=== PATIENT | female | born 1960 | race Caucasian/White ===

== ENCOUNTER 2021-09-26 17:52 | Emergency (ER) | payer OTHER ==
--- NOTE | 2021-09-26 18:52 | EDM.PDOC ---
ED HPI GENERAL MEDICAL PROBLEM - General Chief Complaint: General Stated Complaint: COVID SYMPTOMS Time Seen by Provider: 09/26/21 18:35 Source of Information: Reports: Patient, Old Records, RN History Limitations: Reports: No Limitations - History of Present Illness INITIAL COMMENTS - FREE TEXT/NARRATIVE: 61 yo female presents with mild Covid sx's. She is not SOB. Sx's began last Wednesday as low back pain and she was seen in the clinic on Wednesday, but no Covid test was done. Had one Rangel & Rangel vaccine only so far. Onset: Gradual Onset Date: 09/20/21 Duration: Day(s): (6+), Waxing/Waning (sx's changing) Location: Reports: Chest Quality: Reports: Dull Severity: Mild Improves with: Reports: None Worsens with: Reports: Movement (exertion) Context: Reports: Other (See HPI) Associated Symptoms: Reports: Cough (mild), Malaise, Shortness of Breath (mild). 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 Lower Back Pain Score (Numeric/FACES): 4 - Related Data Allergies Allergy/AdvReac Type Severity Reaction Status Date / Time No Known Allergies Allergy Verified 09/26/21 18:26 Home Meds: Home Meds Acetaminophen [Tylenol Extra Strength] 500 mg PO Q4H 09/26/21 [History] Ibuprofen 800 mg PO Q4H 09/26/21 [History] Past Medical History - Past Health History Medical/Surgical History: Denies Medical/Surgical History - Infectious Disease History Infectious Disease History: Reports: Chicken Pox, Measles, Mumps Social & Family History - Tobacco Use Tobacco Use Status *Q: Never Tobacco User - Caffeine Use Caffeine Use: Reports: Coffee, Soda, Tea - Recreational Drug Use Recreational Drug Use: No ED ROS GENERAL - Review of Systems Review Of Systems: See Below Constitutional: Reports: Malaise HEENT: Reports: No Symptoms Respiratory: Reports: Shortness of Breath, Cough. Denies: Sputum Cardiovascular: Reports: No Symptoms GI/Abdominal: Reports: No Symptoms : Reports: No Symptoms Musculoskeletal: Reports: No Symptoms Skin: Reports: No Symptoms Neurological: Reports: No Symptoms Psychiatric: Reports: No Symptoms ED EXAM, GENERAL - Physical Exam Exam: See Below Exam Limited By: No Limitations General Appearance: Alert, WD/WN, No Apparent Distress, Obese Eye Exam: Bilateral Eye: Normal Inspection Ears: Normal External Exam, Normal Canal, Hearing Grossly Normal, Normal TMs Ear Exam: Bilateral Ear: Auricle Normal, Canal Normal Nose: Normal Inspection, No Blood Throat/Mouth: Normal Inspection, Normal Lips, Normal Oropharynx, Normal Voice, No Airway Compromise Head: Atraumatic, Normocephalic Neck: Normal Inspection Respiratory/Chest: No Respiratory Distress, No Accessory Muscle Use, Crackles. No: Lungs Clear, Normal Breath Sounds, Respiratory Distress Cardiovascular: Regular Rate, Rhythm Extremities: Normal Inspection Neurological: Alert, Oriented, CN II-XII Intact, Normal Cognition, No Motor/Sensory Deficits Psychiatric: Normal Affect, Normal Mood Skin Exam: Warm, Dry, Intact, Normal Color, No Rash Course - Vital Signs Last Recorded V/S: Last Vital Signs Temp 35.9 C L 09/26/21 18:06 Pulse 74 09/26/21 18:06 Resp 16 09/26/21 18:06 BP 123/75 09/26/21 18:06 Pulse Ox 92 L 09/26/21 18:06 - Orders/Labs/Meds Labs: Laboratory Tests 09/26/21 Range/Units 18:08 SARS CoV-2 RNA Rapid ANGEL Positive H Departure - Departure Time of Disposition: 18:51 Disposition: Home, Self-Care 01 Condition: Fair Clinical Impression: COVID-19 - Discharge Information *PRESCRIPTION DRUG MONITORING PROGRAM REVIEWED*: Not Applicable *COPY OF PRESCRIPTION DRUG MONITORING REPORT IN PATIENT TRINA: Not Applicable Instructions: COVID-19 Frequently Asked Questions Referrals: PCP,None [Primary Care Provider] - Additional Instructions: Take acetaminophen for pain and fever control. Zinc 25-50 mg daily. Vitamin D [id number] IU per day. Return Wednesday for immunoglobulin therapy, someone will call you to set up. Return if breathing gets worse in the interim. Isolate yourself for another week to prevent spread, wear a mask, and wash your hands often. Sepsis Event Note (ED) - Evaluation Sepsis Screening Result: No Definite Risk - Focused Exam Vital Signs: Vital Signs Temp Pulse Resp BP Pulse Ox 09/26/21 18:06 35.9 C L 74 16 123/75 92 L
== END 2021-09-26 19:02 | disposition home or self-care (01) ==
LOC: JP.ED 17:52
DX: U07.1 COVID-19 (principal)
CPT/HCPCS: 99283; U0002

== ENCOUNTER 2021-10-01 07:15 | Inpatient (IN) | payer OTHER ==
[2021-10-01] MEDS ORDERED: Dexamethasone 4 MG/ML SDV IVPUSH ONE (07:41)
--- NOTE | 2021-10-01 07:52 | EDM.PDOC ---
ED HPI GENERAL MEDICAL PROBLEM - General Chief Complaint: Respiratory Problem Stated Complaint: LOW 02, COVID POSITIVE Time Seen by Provider: 10/01/21 07:35 Source of Information: Reports: Patient, Old Records, RN History Limitations: Reports: No Limitations - History of Present Illness INITIAL COMMENTS - FREE TEXT/NARRATIVE: 61 yo female here with SOB. Has known Covid and did receive the immunoglobulins. No fever today, but has had them on and off. Is partially vaccinated with one J&J vaccine to date. No calf or chest pain. Onset: Gradual Duration: Day(s):, Getting Worse Location: Reports: Chest Quality: Reports: Other (no pain) Severity: Moderate Improves with: Reports: Rest Worsens with: Reports: Movement (exertion) Context: Reports: Other (See HPI) Associated Symptoms: Reports: Cough, Fever/Chills, Shortness of Breath. 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 Denies: Wheezing, Pleuritic Chest Pain, Sputum, Hemoptysis Cardiovascular: Reports: No Symptoms Endocrine: Reports: No Symptoms GI/Abdominal: Reports: No Symptoms : Reports: No Symptoms Musculoskeletal: Reports: No Symptoms Skin: Reports: No Symptoms Neurological: Reports: No Symptoms Psychiatric: Reports: No Symptoms ED EXAM, GENERAL - Physical Exam Exam: See Below Exam Limited By: No Limitations General Appearance: Alert, WD/WN, Mild Distress, Obese Eye Exam: Bilateral Eye: Normal Inspection Ears: Normal External Exam, Normal Canal, Hearing Grossly Normal Ear Exam: Bilateral Ear: Auricle Normal, Canal Normal Nose: Normal Inspection, No Blood Throat/Mouth: Normal Inspection, Normal Lips, Normal Oropharynx, Normal Voice, No Airway Compromise Head: Atraumatic, Normocephalic Neck: Normal Inspection Respiratory/Chest: Crackles, Other (mild tachypnea). No: No Respiratory Distress, Lungs Clear, Normal Breath Sounds Cardiovascular: Regular Rate, Rhythm, No Edema GI/Abdominal: Normal Bowel Sounds, Soft, Non-Tender, No Distention Back Exam: Normal Inspection. No: CVA Tenderness (R), CVA Tenderness (L) Extremities: Normal Inspection, Normal Range of Motion, Non-Tender, No Pedal Edema. No: Keke's Sign Neurological: Alert, Oriented, CN II-XII Intact, Normal Cognition, No Motor/Sensory Deficits Psychiatric: Normal Affect, Normal Mood Skin Exam: Warm, Dry, Intact, Normal Color, No Rash Course - Vital Signs Text/Narrative:: Dr. Estes called @ 08[facility] Last Recorded V/S: Last Vital Signs Temp 36.2 C 10/01/21 11:00 Pulse 75 10/01/21 11:00 Resp 18 10/01/21 11:00 BP 106/71 10/01/21 11:00 Pulse Ox 93 L 10/01/21 11:00 - Orders/Labs/Meds Orders: Active Orders 24 hr Category Date Time Status Oxygen Therapy Adult [Oxygen Therapy, ED] [RC] Care 10/01/21 07:38 Active ASDIRECTED HEPATIC FUNCTION PANEL,HFP [CHEM] DAILY Lab 10/02/21 08:45 Ordered HEPATIC FUNCTION PANEL,HFP [CHEM] DAILY Lab 10/03/21 08:45 Ordered HEPATIC FUNCTION PANEL,HFP [CHEM] DAILY Lab 10/04/21 08:45 Ordered HEPATIC FUNCTION PANEL,HFP [CHEM] DAILY Lab 10/05/21 08:45 Ordered Sodium Chloride 0.9% [Saline Flush] Med 10/01/21 07:39 Active 10 ml FLUSH ASDIRECTED PRN Saline Lock Insert [OM.PC] Routine Oth 10/01/21 07:39 Ordered Medication Orders Sodium Chloride (Sodium Chloride 0.9% 10 Ml Syringe) 10 ml FLUSH ASDIRECTED PRN PRN Reason: Keep Vein Open Last Admin: 10/01/21 07:57 Dose: 10 ml Documented by: SCOTT Labs: Laboratory Tests 10/01/21 10/01/21 10/01/21 Range/Units 07:39 07:49 07:49 WBC 13.1 H (4.5-11.0) K/uL RBC 4.85 (3.30-5.50) M/uL Hgb 14.0 (12.0-15.0) g/dL Hct 42.3 (36.0-48.0) % MCV 87 (80-98) fL MCH 29 (27-31) pg MCHC 33 (32-36) % Plt Count 396 (150-400) K/uL D-Dimer, Quantitative 2865.72 H (0.0-500.0) ng/mL Sodium 138 L (140-148) mmol/L Potassium 3.6 (3.6-5.2) mmol/L Chloride 100 (100-108) mmol/L Carbon Dioxide 27 (21-32) mmol/L Anion Gap 14.6 H (5.0-14.0) mmol/L BUN 9 (7-18) mg/dL Creatinine 0.8 (0.6-1.0) mg/dL Est Cr Clr Drug Dosing 70.01 mL/min Estimated GFR (MDRD) > 60 (>60) Glucose 113 H (74-106) mg/dL Calcium 8.4 L (8.5-10.1) mg/dL Total Bilirubin (0.2-1.0) mg/dL Direct Bilirubin (0.0-0.2) mg/dL Indirect Bilirubin AST (15-37) U/L ALT (12-78) U/L Alkaline Phosphatase (46-116) U/L C-Reactive Protein (0.0-0.3) mg/dL Total Protein (6.4-8.2) g/dL Albumin (3.4-5.0) g/dL Globulin (2.3-3.5) g/dL Albumin/Globulin Ratio (1.2-2.2) Procalcitonin ng/mL Urine Color (YELLOW) Urine Appearance (CLEAR) Urine pH (5.0-8.0) Ur Specific [place] (1.008-1.030) Urine Protein (NEGATIVE) mg/dL Urine Glucose (UA) (NEGATIVE) mg/dL Urine Ketones (NEGATIVE) mg/dL Urine Occult Blood (NEGATIVE) Urine Nitrite (NEGATIVE) Urine Bilirubin (NEGATIVE) Urine Urobilinogen (0.2-1.0) EU/dL Ur Leukocyte Esterase (NEGATIVE) Urine RBC (0-5) Urine WBC (0-5) Ur Epithelial Cells Amorphous Sediment Urine Bacteria Urine Mucus 10/01/21 10/01/21 10/01/21 Range/Units 07:49 08:10 08:44 WBC (4.5-11.0) K/uL RBC (3.30-5.50) M/uL Hgb (12.0-15.0) g/dL Hct (36.0-48.0) % MCV (80-98) fL MCH (27-31) pg MCHC (32-36) % Plt Count (150-400) K/uL D-Dimer, Quantitative (0.0-500.0) ng/mL Sodium (140-148) mmol/L Potassium (3.6-5.2) mmol/L Chloride (100-108) mmol/L Carbon Dioxide (21-32) mmol/L Anion Gap (5.0-14.0) mmol/L BUN (7-18) mg/dL Creatinine (0.6-1.0) mg/dL Est Cr Clr Drug Dosing mL/min Estimated GFR (MDRD) (>60) Glucose (74-106) mg/dL Calcium (8.5-10.1) mg/dL Total Bilirubin 0.7 (0.2-1.0) mg/dL Direct Bilirubin 0.25 H (0.0-0.2) mg/dL Indirect Bilirubin 0.45 AST 86 H (15-37) U/L ALT 68 (12-78) U/L Alkaline Phosphatase 210 H (46-116) U/L C-Reactive Protein 9.32 H (0.0-0.3) mg/dL Total Protein 7.2 (6.4-8.2) g/dL Albumin 2.6 L (3.4-5.0) g/dL Globulin 4.6 H (2.3-3.5) g/dL Albumin/Globulin Ratio 0.6 L (1.2-2.2) Procalcitonin ng/mL Urine Color Yellow (YELLOW) Urine Appearance Clear (CLEAR) Urine pH 7.0 (5.0-8.0) Ur Specific [place] 1.015 (1.008-1.030) Urine Protein Trace H (NEGATIVE) mg/dL Urine Glucose (UA) Negative (NEGATIVE) mg/dL Urine Ketones Negative (NEGATIVE) mg/dL Urine Occult Blood Negative (NEGATIVE) Urine Nitrite Negative (NEGATIVE) Urine Bilirubin Negative (NEGATIVE) Urine Urobilinogen 2.0 H (0.2-1.0) EU/dL Ur Leukocyte Esterase Negative (NEGATIVE) Urine RBC Not seen (0-5) Urine WBC 0-5 (0-5) Ur Epithelial Cells Moderate Amorphous Sediment Rare Urine Bacteria Rare Urine Mucus Not seen 10/01/21 Range/Units 08:58 WBC (4.5-11.0) K/uL RBC (3.30-5.50) M/uL Hgb (12.0-15.0) g/dL Hct (36.0-48.0) % MCV (80-98) fL MCH (27-31) pg MCHC (32-36) % Plt Count (150-400) K/uL D-Dimer, Quantitative (0.0-500.0) ng/mL Sodium (140-148) mmol/L Potassium (3.6-5.2) mmol/L Chloride (100-108) mmol/L Carbon Dioxide (21-32) mmol/L Anion Gap (5.0-14.0) mmol/L BUN (7-18) mg/dL Creatinine (0.6-1.0) mg/dL Est Cr Clr Drug Dosing mL/min Estimated GFR (MDRD) (>60) Glucose (74-106) mg/dL Calcium (8.5-10.1) mg/dL Total Bilirubin (0.2-1.0) mg/dL Direct Bilirubin (0.0-0.2) mg/dL Indirect Bilirubin AST (15-37) U/L ALT (12-78) U/L Alkaline Phosphatase (46-116) U/L C-Reactive Protein (0.0-0.3) mg/dL Total Protein (6.4-8.2) g/dL Albumin (3.4-5.0) g/dL Globulin (2.3-3.5) g/dL Albumin/Globulin Ratio (1.2-2.2) Procalcitonin 0.10 ng/mL Urine Color (YELLOW) Urine Appearance (CLEAR) Urine pH (5.0-8.0) Ur Specific [place] (1.008-1.030) Urine Protein (NEGATIVE) mg/dL Urine Glucose (UA) (NEGATIVE) mg/dL Urine Ketones (NEGATIVE) mg/dL Urine Occult Blood (NEGATIVE) Urine Nitrite (NEGATIVE) Urine Bilirubin (NEGATIVE) Urine Urobilinogen (0.2-1.0) EU/dL Ur Leukocyte Esterase (NEGATIVE) Urine RBC (0-5) Urine WBC (0-5) Ur Epithelial Cells Amorphous Sediment Urine Bacteria Urine Mucus Meds: Medications Generic Name Dose Route Start Last Admin Trade Name Freq PRN Reason Stop Dose Admin Sodium Chloride 10 ml 10/01/21 07:39 10/01/21 07:57 Sodium Chloride 0.9% 10 Ml Syringe FLUSH 10 ml ASDIRECTED PRN Administration Keep Vein Open Discontinued Medications Generic Name Dose Route Start Last Admin Trade Name Freq PRN Reason Stop Dose Admin Dexamethasone 6 mg 10/01/21 07:41 10/01/21 07:56 Dexamethasone 4 Mg/Ml Sdv IVPUSH 10/01/21 07:42 6 mg ONETIME ONE Administration Remdesivir 200 mg/ Sodium 250 mls @ 250 mls/hr 10/01/21 11:00 10/01/21 11:26 Chloride IV 10/01/21 11:59 250 mls/hr ONETIME ONE Administration Lidocaine/Epinephrine 10 ml 10/01/21 09:35 Lidocaine 1% With Epinephrine 1:100,000 50 Ml Mdv SUBCUT 10/01/21 09:36 NOW STA - Radiology Interpretation Free Text/Narrative:: CXR-bilat Covid pneumonia Departure - Departure Time of Disposition: 12:00 Disposition: Admitted As Inpatient 67 Condition: Fair Clinical Impression: Pneumonia due to COVID-19 virus, Hypoxia - Discharge Information *PRESCRIPTION DRUG MONITORING PROGRAM REVIEWED*: Not Applicable *COPY OF PRESCRIPTION DRUG MONITORING REPORT IN PATIENT TRINA: Not Applicable Referrals: PCP,None [Primary Care Provider] - Forms: ED Department Discharge Sepsis Event Note (ED) - Evaluation Sepsis Screening Result: No Definite Risk - Focused Exam Vital Signs: Vital Signs Temp Pulse Resp BP Pulse Ox 10/01/21 11:00 36.2 C 75 18 106/71 93 L 10/01/21 07:39 94 L 10/01/21 07:30 36.5 C 75 22 H 168/84 H 77 L - My Orders Last 24 Hours: My Active Orders 10/01/21 07:38 Oxygen Therapy Adult [Oxygen Therapy, ED] [RC] ASDIRECTED 10/01/21 07:39 Sodium Chloride 0.9% [Saline Flush] 10 ml FLUSH ASDIRECTED PRN Saline Lock Insert [OM.PC] Routine 10/02/21 08:45 HEPATIC FUNCTION PANEL,HFP [CHEM] DAILY 10/03/21 08:45 HEPATIC FUNCTION PANEL,HFP [CHEM] DAILY 10/04/21 08:45 HEPATIC FUNCTION PANEL,HFP [CHEM] DAILY 10/05/21 08:45 HEPATIC FUNCTION PANEL,HFP [CHEM] DAILY - Assessment/Plan Last 24 Hours: My Active Orders 10/01/21 07:38 Oxygen Therapy Adult [Oxygen Therapy, ED] [RC] ASDIRECTED 10/01/21 07:39 Sodium Chloride 0.9% [Saline Flush] 10 ml FLUSH ASDIRECTED PRN Saline Lock Insert [OM.PC] Routine 10/02/21 08:45 HEPATIC FUNCTION PANEL,HFP [CHEM] DAILY 10/03/21 08:45 HEPATIC FUNCTION PANEL,HFP [CHEM] DAILY 10/04/21 08:45 HEPATIC FUNCTION PANEL,HFP [CHEM] DAILY 10/05/21 08:45 HEPATIC FUNCTION PANEL,HFP [CHEM] DAILY
[2021-10-01] MEDS: Sodium Chloride 0.9% 10 ML Syringe FLUSH PRN ×2 (07:57→14:57)
[2021-10-01] MEDS ORDERED: REMDESIVIR 200 MG in Sodium Chloride 0.9% 250 ML IV ONE ×2 (08:44→11:00)
--- NOTE | 2021-10-01 09:30 | CR ---
CHEST: Portable 10/01/2021 at 8:16 AM CLINICAL HISTORY:Hypoxia COMPARISON:None FINDINGS: Patient has moderate diffuse bilateral pulmonary infiltrates. Heart is enlarged. Pulmonary vascularity is obscured. No effusions are seen. Impression: Moderate diffuse bilateral pulmonary infiltrates most consistent with a pneumonitis
[2021-10-01] MEDS ORDERED: Lidocaine 1% with EPINEPHrine 1:100,000 50 ML MDV SUBCUT STA (09:35)
--- NOTE | 2021-10-01 12:48 | PCM.HP.2 ---
H&P History of Present Illness - General Date of Service: 10/01/21 Admit Problem/Dx: Admission Diagnosis/Problem Admission Diagnosis/Problem Pneumonia Source of Information: Patient, Provider History Limitations: Reports: No Limitations - History of Present Illness Initial Comments - Free Text/Narative: CC: I'm so short of breath HPI: Deana presents to the emergency room today with progressive shortness of breath and cough. She first noticed symptoms concerning for Covid on about September 19. She had mild cough and shortness of breath at that time as well as some intermittent fevers, fatigue and weakness. Symptoms progressed over the next several days. She was seen in the emergency room on September 26 and did receive monoclonal antibodies on September 27. She felt okay the day after getting monoclonal antibodies but over the next couple of days had increasing co ugh and shortness of breath again. She came into the emergency room because of the severity of her dyspnea. She does report some chest tightness especially with deep breaths but does not report any chest pain. She reports intermittent subjective fevers over the past couple of days. She has a harsh but dry cough. Intermittent diarrhea which has been improving. No nausea or abdominal pain. No appetite but she has been doing okay with fluids. She reports a dry mouth and mild intermittent headaches. She did receive the [employer] vaccine but it was only a few days prior to onset of her Covid symptoms. Work-up in the emergency room was suggestive of Covid pneumonia with bilateral infiltrates noted on the chest x-ray as well as an elevation of D-dimer and CRP. She was hypoxic. She received dexamethasone and remdesivir in the emergency room and will be admitted for further management. 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: Musculoskeletal History: Reports: Fracture - Infectious Disease History Infectious Disease History: Reports: Chicken Pox, Measles, Mumps - Past Surgical History HEENT Surgical History: Reports: Tonsillectomy Social & Family History - Family History Cardiac: Denies: CAD - Tobacco Use Tobacco Use Status *Q: Never Tobacco User - Caffeine Use Caffeine Use: Reports: Coffee, Soda - Alcohol Use Alcohol Use History: No Alcohol Use in Last Twelve Months: No - Recreational Drug Use Recreational Drug Use: No H&P Review of Systems - Review of Systems: Review Of Systems: See Below Free Text/Narrative: A complete 12 point review of systems was obtained. Pertinent positives and negatives are noted in the history of present illness. All other systems were reviewed and were negative except as noted. Exam - Exam Exam: See Below - Vital Signs Vital Signs: Last Vital Signs Temp 36.2 C 10/01/21 11:00 Pulse 75 10/01/21 11:00 Resp 18 10/01/21 11:00 BP 106/71 10/01/21 11:00 Pulse Ox 93 L 10/01/21 11:00 Weight: 127.006 kg - Exam Quality Assessment: Supplemental Oxygen General: Alert, Oriented, Cooperative, Mild Distress HEENT: Conjunctiva Clear. No: Mucosa Moist & [place], Scleral Icterus Neck: Supple, Trachea Midline. No: Lymphadenopathy Lungs: Normal Respiratory Effort, Crackles (mild both mid lungs and moderate both lower lungs ) Cardiovascular: Regular Rate, Regular Rhythm. No: Systolic Murmur GI/Abdominal Exam: Normal Bowel Sounds, Soft, Non-Tender, No Distention Back Exam: Normal Inspection, Full Range of Motion Extremities: No Pedal Edema. No: Increased Warmth Peripheral Pulses: 2+: Dorsalis Pedis (L), Dorsalis Pedis (R) Skin: Warm, Dry. No: Rash Neuro Extensive - Mental Status: Alert, Oriented x3, Nl Response to Commands Neuro Extensive - Motor, Sensory, Reflexes: No: Dysarthria, Abnormal Motor, Tremor Psychiatric: Alert, Normal Affect - Patient Data Lab Results Last 24 hrs: Laboratory Results - last 24 hr 10/01/21 10/01/21 10/01/21 Range/Units 07:39 07:49 07:49 WBC 13.1 H (4.5-11.0) K/uL RBC 4.85 (3.30-5.50) M/uL Hgb 14.0 (12.0-15.0) g/dL Hct 42.3 (36.0-48.0) % MCV 87 (80-98) fL MCH 29 (27-31) pg MCHC 33 (32-36) % Plt Count 396 (150-400) K/uL D-Dimer, Quantitative 2865.72 H (0.0-500.0) ng/mL Sodium 138 L (140-148) mmol/L Potassium 3.6 (3.6-5.2) mmol/L Chloride 100 (100-108) mmol/L Carbon Dioxide 27 (21-32) mmol/L Anion Gap 14.6 H (5.0-14.0) mmol/L BUN 9 (7-18) mg/dL Creatinine 0.8 (0.6-1.0) mg/dL Est Cr Clr Drug Dosing 70.01 mL/min Estimated GFR (MDRD) > 60 (>60) Glucose 113 H (74-106) mg/dL Calcium 8.4 L (8.5-10.1) mg/dL Total Bilirubin (0.2-1.0) mg/dL Direct Bilirubin (0.0-0.2) mg/dL Indirect Bilirubin AST (15-37) U/L ALT (12-78) U/L Alkaline Phosphatase (46-116) U/L C-Reactive Protein (0.0-0.3) mg/dL Total Protein (6.4-8.2) g/dL Albumin (3.4-5.0) g/dL Globulin (2.3-3.5) g/dL Albumin/Globulin Ratio (1.2-2.2) Procalcitonin ng/mL Urine Color (YELLOW) Urine Appearance (CLEAR) Urine pH (5.0-8.0) Ur Specific [place] (1.008-1.030) Urine Protein (NEGATIVE) mg/dL Urine Glucose (UA) (NEGATIVE) mg/dL Urine Ketones (NEGATIVE) mg/dL Urine Occult Blood (NEGATIVE) Urine Nitrite (NEGATIVE) Urine Bilirubin (NEGATIVE) Urine Urobilinogen (0.2-1.0) EU/dL Ur Leukocyte Esterase (NEGATIVE) Urine RBC (0-5) Urine WBC (0-5) Ur Epithelial Cells Amorphous Sediment Urine Bacteria Urine Mucus 10/01/21 10/01/21 10/01/21 Range/Units 07:49 08:10 08:44 WBC (4.5-11.0) K/uL RBC (3.30-5.50) M/uL Hgb (12.0-15.0) g/dL Hct (36.0-48.0) % MCV (80-98) fL MCH (27-31) pg MCHC (32-36) % Plt Count (150-400) K/uL D-Dimer, Quantitative (0.0-500.0) ng/mL Sodium (140-148) mmol/L Potassium (3.6-5.2) mmol/L Chloride (100-108) mmol/L Carbon Dioxide (21-32) mmol/L Anion Gap (5.0-14.0) mmol/L BUN (7-18) mg/dL Creatinine (0.6-1.0) mg/dL Est Cr Clr Drug Dosing mL/min Estimated GFR (MDRD) (>60) Glucose (74-106) mg/dL Calcium (8.5-10.1) mg/dL Total Bilirubin 0.7 (0.2-1.0) mg/dL Direct Bilirubin 0.25 H (0.0-0.2) mg/dL Indirect Bilirubin 0.45 AST 86 H (15-37) U/L ALT 68 (12-78) U/L Alkaline Phosphatase 210 H (46-116) U/L C-Reactive Protein 9.32 H (0.0-0.3) mg/dL Total Protein 7.2 (6.4-8.2) g/dL Albumin 2.6 L (3.4-5.0) g/dL Globulin 4.6 H (2.3-3.5) g/dL Albumin/Globulin Ratio 0.6 L (1.2-2.2) Procalcitonin ng/mL Urine Color Yellow (YELLOW) Urine Appearance Clear (CLEAR) Urine pH 7.0 (5.0-8.0) Ur Specific [place] 1.015 (1.008-1.030) Urine Protein Trace H (NEGATIVE) mg/dL Urine Glucose (UA) Negative (NEGATIVE) mg/dL Urine Ketones Negative (NEGATIVE) mg/dL Urine Occult Blood Negative (NEGATIVE) Urine Nitrite Negative (NEGATIVE) Urine Bilirubin Negative (NEGATIVE) Urine Urobilinogen 2.0 H (0.2-1.0) EU/dL Ur Leukocyte Esterase Negative (NEGATIVE) Urine RBC Not seen (0-5) Urine WBC 0-5 (0-5) Ur Epithelial Cells Moderate Amorphous Sediment Rare Urine Bacteria Rare Urine Mucus Not seen 10/01/21 Range/Units 08:58 WBC (4.5-11.0) K/uL RBC (3.30-5.50) M/uL Hgb (12.0-15.0) g/dL Hct (36.0-48.0) % MCV (80-98) fL MCH (27-31) pg MCHC (32-36) % Plt Count (150-400) K/uL D-Dimer, Quantitative (0.0-500.0) ng/mL Sodium (140-148) mmol/L Potassium (3.6-5.2) mmol/L Chloride (100-108) mmol/L Carbon Dioxide (21-32) mmol/L Anion Gap (5.0-14.0) mmol/L BUN (7-18) mg/dL Creatinine (0.6-1.0) mg/dL Est Cr Clr Drug Dosing mL/min Estimated GFR (MDRD) (>60) Glucose (74-106) mg/dL Calcium (8.5-10.1) mg/dL Total Bilirubin (0.2-1.0) mg/dL Direct Bilirubin (0.0-0.2) mg/dL Indirect Bilirubin AST (15-37) U/L ALT (12-78) U/L Alkaline Phosphatase (46-116) U/L C-Reactive Protein (0.0-0.3) mg/dL Total Protein (6.4-8.2) g/dL Albumin (3.4-5.0) g/dL Globulin (2.3-3.5) g/dL Albumin/Globulin Ratio (1.2-2.2) Procalcitonin 0.10 ng/mL Urine Color (YELLOW) Urine Appearance (CLEAR) Urine pH (5.0-8.0) Ur Specific [place] (1.008-1.030) Urine Protein (NEGATIVE) mg/dL Urine Glucose (UA) (NEGATIVE) mg/dL Urine Ketones (NEGATIVE) mg/dL Urine Occult Blood (NEGATIVE) Urine Nitrite (NEGATIVE) Urine Bilirubin (NEGATIVE) Urine Urobilinogen (0.2-1.0) EU/dL Ur Leukocyte Esterase (NEGATIVE) Urine RBC (0-5) Urine WBC (0-5) Ur Epithelial Cells Amorphous Sediment Urine Bacteria Urine Mucus Result Diagrams: 10/01/21 07:39 10/01/21 07:49 Imaging Impressions Last 24 hrs: CXR-image personally reviewed-there are patchy bilateral changes throughout both lungs with the exception of the left upper lung. No obvious mass. No effusions. Heart size is normal. Sepsis Event Note - Evaluation Sepsis Screening Result: No Definite Risk - Focused Exam Vital Signs: Vital Signs Temp Pulse Resp BP Pulse Ox 10/01/21 11:00 36.2 C 75 18 106/71 93 L 10/01/21 07:39 94 L 10/01/21 07:30 36.5 C 75 22 H 168/84 H 77 L *Q Meaningful Use (ADM) - VTE Risk Assess *Q Each Risk Factor Represents 1 Point: Obesity ( BMI > 25 kg/m2), Serious lung disease including pneumonia Total Score 1 Point Risk Factors: 2 Each Risk Factor Represents 2 Points: Age 60 - 74 Years Total Score 2 Point Risk Factors: 2 Each Risk Factor Represents 3 Points: None Total Score 3 Point Risk Factors: 0 Each Risk Factor Represents 5 Points: None Total Score 5 Point Risk Factors: 0 Venous Thromboembolism Risk Factor Score *Q: 4 - Problem List (1) Pneumonia due to COVID-19 virus SNOMED Code(s): 957882670932557352 ICD Code: U07.1 - COVID-19; J12.82 - PNEUMONIA DUE TO CORONAVIRUS DISEASE 2018 Status: Acute Current Visit: Yes (2) Acute respiratory failure due to COVID-19 SNOMED Code(s): 358220182 ICD Code: U07.1 - COVID-19; J96.00 - ACUTE RESPIRATORY FAILURE, UNSP W HYPOXIA OR HYPERCAPNIA Status: Acute Current Visit: Yes (3) Obesity, Class III, BMI 40-49.9 (morbid obesity) SNOMED Code(s): 189461822, 908010214, 99628163425807 ICD Code: E66.01 - MORBID (SEVERE) OBESITY DUE TO EXCESS CALORIES Status: Chronic Current Visit: Yes Problem List Initiated/Reviewed/Updated: Yes Orders Last 24hrs: Active Orders 24 hr Category Date Time Status Patient Status Manage Transfer [TRANSFER] Routine ADT 10/01/21 12:40 Ordered Oxygen Therapy Adult [Oxygen Therapy, ED] [RC] Care 10/01/21 07:38 Active ASDIRECTED Ang Chest [CT] Stat Exams 10/01/21 12:39 Ordered Ang Chest w Cont [MR] Stat Exams 10/01/21 12:37 Stop Req HEPATIC FUNCTION PANEL,HFP [CHEM] DAILY Lab 10/02/21 08:45 Ordered HEPATIC FUNCTION PANEL,HFP [CHEM] DAILY Lab 10/03/21 08:45 Ordered HEPATIC FUNCTION PANEL,HFP [CHEM] DAILY Lab 10/04/21 08:45 Ordered HEPATIC FUNCTION PANEL,HFP [CHEM] DAILY Lab 10/05/21 08:45 Ordered Sodium Chloride 0.9% [Saline Flush] Med 10/01/21 07:39 Active 10 ml FLUSH ASDIRECTED PRN Saline Lock Insert [OM.PC] Routine Oth 10/01/21 07:39 Ordered Resuscitation Status Routine Resus Stat 10/01/21 12:41 Ordered Medication Orders Sodium Chloride (Sodium Chloride 0.9% 10 Ml Syringe) 10 ml FLUSH ASDIRECTED PRN PRN Reason: Keep Vein Open Last Admin: 10/01/21 07:57 Dose: 10 ml Documented by: SCOTT Assessment/Plan Comment:: ASSESSMENT AND PLAN - COVID-19 pneumonia-complicated by acute respiratory failure with hypoxia. Symptom onset 09/19. She was vaccinated but only a few days before symptom onset. She did receive monoclonal antibodies 4 days ago but unfortunately has worsened. CT pulmonary angiogram negative for PE. D-dimer moderately elevated as is the CRP. -Dexamethasone 6 mg daily x10 (day 1) -Remdesivir x5 days -Enoxaparin every 24 hours -Prone as able -Supplemental oxygen, wean as able -Symptomatic management of cough -Isolation precautions Morbid obesity BMI of 45- Maintenance issues - -DVT prophylaxis-enoxaparin -GI prophylaxis-not indicated -Nutrition-regular -El catheter-not indicated CODE STATUS -full code Admission justification -this patient will be admitted for inpatient services and is medically appropriate meeting medical necessity for inpatient admission as outlined in my documentation. I reasonably expect the patient will require inpatient services that span a period time over 2 midnights. I reasonably expect this patient to be discharged or transferred within 96 hours after admission to the [facility]. Disposition -I anticipate discharge home after the hospital stay Usman Estes M.D. - Mortality Measure Prognosis:: Good
[2021-10-01] MEDS ORDERED: Sodium Chloride 0.9% 10 ML SDV FLUSH ONE (13:19)
[2021-10-01] MEDS ORDERED: Iopamidol 755 Mg/ML 100 ML Bottle IV SCH (13:30)
[2021-10-01] MEDS ORDERED: Sodium Chloride 0.9% 100 ML IV SCH (13:30)
[2021-10-01] MEDS ORDERED: Magnesium Hydroxide 400 MG/5 ML Susp 30 ML Cup PO PRN (13:48)
[2021-10-01] MEDS ORDERED: Acetaminophen 325 MG Tab PO PRN (13:48)
[2021-10-01] MEDS ORDERED: Ondansetron 4 MG/2 ML SDV IV PRN (13:48)
[2021-10-01] MEDS ORDERED: Ondansetron 4 MG Tab.DIS PO PRN (13:48)
[2021-10-01] MEDS ORDERED: LORazepam 2 MG/ML SDV IVPUSH PRN (13:48)
--- NOTE | 2021-10-01 15:39 | CT ---
Ang Chest CLINICAL HISTORY: Chest pain, elevated d-dimer, hypoxia TECHNIQUE: Thin section axial contiguous tomographic sections were taken through the chest after bolus IV iodinated contrast administration. Coronal and sagittal images were reconstructed. Auto dosage reduction and iterative reconstruction techniques employed. FINDINGS: Lung window images show diffuse bilateral patchy groundglass opacities. There are some small patchy areas of consolidation. Findings are consistent with diffuse pneumonitis secondary to Covid. There is some signal noise limiting resolution of the smaller branching pulmonary arteries. No filling defects are identified. There is some dilatation of the pulmonary out flow track at 3.7 cm. This can be seen with pulmonary hypertension. No effusions are seen. There is no mediastinal mass or lymphadenopathy. Scans into the upper abdomen show multiple gallstones IMPRESSION: Diffuse bilateral pulmonary infiltrates consistent with pneumonitis No obvious pulmonary emboli are identified but there is some enlargement of the pulmonary of pleural tract. This can be seen with pulmonary hypertension and possible microemboli
[2021-10-01] MEDS: guaiFENesin/Dextromethorphan 100-10 MG/5 ML Soln 10 ML Cup PO PRN (17:11)
[2021-10-01] MEDS: Enoxaparin 40 MG/0.4 ML Syringe SUBCUT SCH (17:11)
[2021-10-01] MEDS ORDERED: LORazepam 0.5 MG Tab PO PRN (17:32)
[2021-10-02] MEDS: guaiFENesin/Dextromethorphan 100-10 MG/5 ML Soln 10 ML Cup PO PRN ×4 (01:42→18:55)
[2021-10-02] MEDS: Benzonatate 100 MG Cap PO PRN (01:42)
[2021-10-02] MEDS: Dexamethasone 4 MG/ML SDV IVPUSH SCH (09:02)
[2021-10-02] MEDS: REMDESIVIR 100 MG in Sodium Chloride 0.9% 100 ML IV SCH (11:11)
[2021-10-02] MEDS: Enoxaparin 40 MG/0.4 ML Syringe SUBCUT SCH (15:00)
--- NOTE | 2021-10-02 15:21 | PCM.PN ---
- General Info Date of Service: 10/02/21 Subjective Update: No acute events overnight. Patient is requiring slightly more oxygen at 6 to 7 L compared to yesterday. Feeling a little better today. Appetite is better. Sense of taste has returned. She continues to have a dry cough which is slightly better. Able to sleep in the prone position for about 5 hours last night. Blood pressure and heart rate stable. No significant temperature elevations. No diarrhea. Functional Status: Reports: Pain Controlled, Tolerating Diet - Review of Systems General: Reports: Weakness, Fatigue - Patient Data Vitals - Most Recent: Last Vital Signs Temp 36.4 C 10/02/21 11:07 Pulse 70 10/02/21 11:07 Resp 18 10/02/21 11:07 BP 117/58 L 10/02/21 11:07 Pulse Ox 90 L 10/02/21 11:07 Weight - Most Recent: 127 kg I&O - Last 24 Hours: Intake & Output 10/02/21 10/02/21 10/02/21 06:59 14:59 22:59 Intake Total 240 500 Balance 240 500 Lab Results Last 24 Hours: Laboratory Results - last 24 hr 10/02/21 10/02/21 10/02/21 Range/Units 04:52 04:52 04:52 WBC 12.6 H (4.5-11.0) K/uL RBC 4.50 (3.30-5.50) M/uL Hgb 13.1 (12.0-15.0) g/dL Hct 39.7 (36.0-48.0) % MCV 88 (80-98) fL MCH 29 (27-31) pg MCHC 33 (32-36) % Plt Count 453 H (150-400) K/uL Sodium 138 L (140-148) mmol/L Potassium 3.8 (3.6-5.2) mmol/L Chloride 101 (100-108) mmol/L Carbon Dioxide 28 (21-32) mmol/L Anion Gap 12.8 (5.0-14.0) mmol/L BUN 14 D (7-18) mg/dL Creatinine 0.7 (0.6-1.0) mg/dL Est Cr Clr Drug Dosing 80.44 mL/min Estimated GFR (MDRD) > 60 (>60) Glucose 116 H (74-106) mg/dL Calcium 8.3 L (8.5-10.1) mg/dL Total Bilirubin 0.5 (0.2-1.0) mg/dL AST 61 H (15-37) U/L ALT 67 (12-78) U/L Alkaline Phosphatase 196 H (46-116) U/L Total Protein 6.9 (6.4-8.2) g/dL Albumin 2.4 L (3.4-5.0) g/dL Globulin 4.5 H (2.3-3.5) g/dL Albumin/Globulin Ratio 0.5 L (1.2-2.2) Procalcitonin 0.06 ng/mL Med Orders - Current: Current Medications Acetaminophen (Acetaminophen 325 Mg Tab) 650 mg PO Q4H PRN PRN Reason: Pain (Mild 1-3)/fever Benzonatate (Benzonatate 100 Mg Cap) 100 mg PO TID PRN PRN Reason: Cough Last Admin: 10/02/21 01:42 Dose: 100 mg Documented by: Dexamethasone (Dexamethasone 4 Mg/Ml Sdv) 6 mg IVPUSH Q24H [facility] Stop: 10/10/21 09:01 Last Admin: 10/02/21 09:02 Dose: 6 mg Documented by: Enoxaparin Sodium (Enoxaparin 40 Mg/0.4 Ml Syringe) 40 mg SUBCUT Q24H [facility] Last Admin: 10/02/21 15:00 Dose: 40 mg Documented by: Guaifenesin/Dextromethorphan (Guaifenesin/Dextromethorphan 100-10 Mg/5 Ml Soln 1 0 Ml Cup) 10 ml PO Q4H PRN PRN Reason: Cough Last Admin: 10/02/21 15:00 Dose: 10 ml Documented by: Remdesivir 100 mg/ Sodium (Chloride) 100 mls @ 100 mls/hr IV Q24H [facility] Stop: 10/05/21 11:59 Last Admin: 10/02/21 11:11 Dose: 100 mls/hr Documented by: Lorazepam (Lorazepam 2 Mg/Ml Sdv) 0.5 mg IVPUSH Q4H PRN PRN Reason: Nausea/Vomiting Lorazepam (Lorazepam 0.5 Mg Tab) 0.5 mg PO BEDTIME PRN PRN Reason: Insomnia Magnesium Hydroxide (Magnesium Hydroxide 400 Mg/5 Ml Susp 30 Ml Cup) 30 ml PO Q12H PRN PRN Reason: Constipation Melatonin (Melatonin 3 Mg Tab) 9 mg PO BEDTIME PRN PRN Reason: Sleep Ondansetron HCl (Ondansetron 4 Mg/2 Ml Sdv) 4 mg IV Q6H PRN PRN Reason: Nausea/Vomiting Ondansetron HCl (Ondansetron 4 Mg Tab.Dis) 4 mg PO Q6H PRN PRN Reason: Nausea able to take PO Senna/Docusate Sodium (Docusate Sodium/Sennosides 50-8.6 Mg Tab) 1 tab PO BID PRN PRN Reason: Constipation Sodium Chloride (Sodium Chloride 0.9% 10 Ml Syringe) 10 ml FLUSH ASDIRECTED PRN PRN Reason: Keep Vein Open Last Admin: 10/01/21 14:57 Dose: 10 ml Documented by: Discontinued Medications Dexamethasone (Dexamethasone 4 Mg/Ml Sdv) 6 mg IVPUSH ONETIME ONE Stop: 10/01/21 07:42 Last Admin: 10/01/21 07:56 Dose: 6 mg Documented by: Remdesivir 200 mg/ Sodium (Chloride) 250 mls @ 250 mls/hr IV ONETIME ONE Stop: 10/01/21 11:59 Last Admin: 10/01/21 11:26 Dose: 250 mls/hr Documented by: Sodium Chloride (Normal Saline) 100 mls @ 3 mls/sec IV ASDIRECTED [facility] Stop: 10/01/21 13:31 Last Admin: 10/01/21 14:57 Dose: 4 mls/sec Documented by: Iopamidol (Iopamidol 755 Mg/Ml 100 Ml Bottle) 100 ml IV . DIRECTED [facility] Stop: 10/01/21 13:31 Last Admin: 10/01/21 14:57 Dose: 100 ml Documented by: Lidocaine/Epinephrine (Lidocaine 1% With Epinephrine 1:100,000 50 Ml Mdv) 10 ml SUBCUT NOW STA Stop: 10/01/21 09:36 Last Admin: 10/02/21 07:22 Dose: Not Given Documented by: Sodium Chloride (Sodium Chloride 0.9% 10 Ml Sdv) 10 ml FLUSH ONETIME ONE Stop: 10/01/21 13:20 - Exam Quality Assessment: Supplemental Oxygen General: Alert, Oriented, Cooperative, No Acute Distress Lungs: Clear to Auscultation, Normal Respiratory Effort Cardiovascular: Regular Rate, Regular Rhythm GI/Abdominal Exam: Soft, No Distention Extremities: No Pedal Edema. No: Increased Warmth Skin: Warm, Dry Psy/Mental Status: Alert, Normal Affect - Patient Data Lab Results Last 24 hrs: Laboratory Results - last 24 hr 10/02/21 10/02/21 10/02/21 Range/Units 04:52 04:52 04:52 WBC 12.6 H (4.5-11.0) K/uL RBC 4.50 (3.30-5.50) M/uL Hgb 13.1 (12.0-15.0) g/dL Hct 39.7 (36.0-48.0) % MCV 88 (80-98) fL MCH 29 (27-31) pg MCHC 33 (32-36) % Plt Count 453 H (150-400) K/uL Sodium 138 L (140-148) mmol/L Potassium 3.8 (3.6-5.2) mmol/L Chloride 101 (100-108) mmol/L Carbon Dioxide 28 (21-32) mmol/L Anion Gap 12.8 (5.0-14.0) mmol/L BUN 14 D (7-18) mg/dL Creatinine 0.7 (0.6-1.0) mg/dL Est Cr Clr Drug Dosing 80.44 mL/min Estimated GFR (MDRD) > 60 (>60) Glucose 116 H (74-106) mg/dL Calcium 8.3 L (8.5-10.1) mg/dL Total Bilirubin 0.5 (0.2-1.0) mg/dL AST 61 H (15-37) U/L ALT 67 (12-78) U/L Alkaline Phosphatase 196 H (46-116) U/L Total Protein 6.9 (6.4-8.2) g/dL Albumin 2.4 L (3.4-5.0) g/dL Globulin 4.5 H (2.3-3.5) g/dL Albumin/Globulin Ratio 0.5 L (1.2-2.2) Procalcitonin 0.06 ng/mL Result Diagrams: 10/02/21 04:52 10/02/21 04:52 Sepsis Event Note - Evaluation Sepsis Screening Result: No Definite Risk - Focused Exam Vital Signs: Vital Signs Temp Pulse Resp BP Pulse Ox 10/02/21 11:07 36.4 C 70 18 117/58 L 90 L 10/02/21 07:00 67 18 135/76 94 L - Problem List & Annotations (1) Pneumonia due to COVID-19 virus SNOMED Code(s): 946198773112353720 Code(s): U07.1 - COVID-19; J12.82 - PNEUMONIA DUE TO CORONAVIRUS DISEASE 2019 Status: Acute Current Visit: Yes (2) Acute respiratory failure due to COVID-19 SNOMED Code(s): 704859942 Code(s): U07.1 - COVID-19; J96.00 - ACUTE RESPIRATORY FAILURE, UNSP W HYPOXIA OR HYPERCAPNIA Status: Acute Current Visit: Yes (3) Obesity, Class III, BMI 40-49.9 (morbid obesity) SNOMED Code(s): 899771951, 202512874, 17558313513834 Code(s): E66.01 - MORBID (SEVERE) OBESITY DUE TO EXCESS CALORIES Status: Chronic Current Visit: Yes - Problem List Review Problem List Initiated/Reviewed/Updated: Yes - My Orders Last 24 Hours: My Active Orders 10/01/21 16:00 Enoxaparin [Lovenox] 40 mg SUBCUT Q24H 10/01/21 17:32 LORazepam [Ativan] 0.5 mg PO BEDTIME PRN 10/02/21 09:00 dexAMETHasone [Decadron] 6 mg IVPUSH Q24H 10/02/21 11:00 Remdesivir 100 mg Sodium Chloride 0.9% [Normal Saline] 100 ml IV Q24H 10/03/21 05:00 COMPREHENSIVE METABOLIC PN,CMP [CHEM] Timed CRP [C-REACTIVE PROTEIN] [CHEM] Timed D-DIMER QUANTITATIVE [COAG] Timed - Plan Plan:: ASSESSMENT AND PLAN - COVID-19 pneumonia-complicated by acute respiratory failure with hypoxia. Symptom onset 09/19. She did receive J and J vaccine but very close to symptom onset. Clinically feels better but is requiring slightly more oxygen today. -Dexamethasone 6 mg daily x10 (day 2) -Remdesivir x5 days -Consider baricitinib if she declines further -Enoxaparin every 24 hours -Prone as able -Supplemental oxygen, wean as able -Symptomatic management of cough -Isolation precautions Morbid obesity BMI of 45- Maintenance issues - -DVT prophylaxis-enoxaparin -GI prophylaxis-not indicated -Nutrition-regular CODE STATUS -full code Disposition -I anticipate discharge home after the hospital stay Usman Estes M.D.
[2021-10-02] MEDS: Melatonin 3 MG Tab PO PRN (21:03)
[2021-10-03] MEDS: guaiFENesin/Dextromethorphan 100-10 MG/5 ML Soln 10 ML Cup PO PRN ×3 (00:52→23:17)
[2021-10-03] MEDS: Dexamethasone 4 MG/ML SDV IVPUSH SCH (08:58)
[2021-10-03] MEDS: REMDESIVIR 100 MG in Sodium Chloride 0.9% 100 ML IV SCH (10:47)
[2021-10-03] MEDS ORDERED: Sodium Chloride 0.65% Nasal Spray 45 ML Bottle NAS PRN (14:06)
--- NOTE | 2021-10-03 15:45 | PCM.PN ---
- General Info Date of Service: 10/03/21 Subjective Update: No acute events overnight. No fevers. Vital signs stable. Patient is feeling better today with less dyspnea and less cough. Appetite is improving. Functional status is improving. Doing well with proning throughout the day and night. D-dimer and CRP have improved. She is currently down to 4 L of oxygen. Functional Status: Reports: Pain Controlled, Tolerating Diet - Review of Systems General: Reports: Weakness Pulmonary: Reports: Shortness of Breath, Cough - Patient Data Vitals - Most Recent: Last Vital Signs Temp 36.7 C 10/03/21 14:39 Pulse 63 10/03/21 14:39 Resp 18 10/03/21 14:39 BP 143/77 H 10/03/21 14:39 Pulse Ox 93 L 10/03/21 14:39 Weight - Most Recent: 127 kg I&O - Last 24 Hours: Intake & Output 10/03/21 10/03/21 10/03/21 06:59 14:59 22:59 Intake Total 800 1720 Balance 800 1720 Lab Results Last 24 Hours: Laboratory Results - last 24 hr 10/03/21 10/03/21 Range/Units 04:30 04:30 D-Dimer, Quantitative 1472.58 H (0.0-500.0) ng/mL Sodium 137 L (140-148) mmol/L Potassium 4.1 (3.6-5.2) mmol/L Chloride 100 (100-108) mmol/L Carbon Dioxide 28 (21-32) mmol/L Anion Gap 13.1 (5.0-14.0) mmol/L BUN 16 (7-18) mg/dL Creatinine 0.7 (0.6-1.0) mg/dL Est Cr Clr Drug Dosing 80.44 mL/min Estimated GFR (MDRD) > 60 (>60) Glucose 110 H (74-106) mg/dL Calcium 8.0 L (8.5-10.1) mg/dL Total Bilirubin 0.4 (0.2-1.0) mg/dL AST 60 H (15-37) U/L ALT 77 (12-78) U/L Alkaline Phosphatase 183 H (46-116) U/L C-Reactive Protein 3.41 H (0.0-0.3) mg/dL Total Protein 6.6 (6.4-8.2) g/dL Albumin 2.4 L (3.4-5.0) g/dL Globulin 4.2 H (2.3-3.5) g/dL Albumin/Globulin Ratio 0.6 L (1.2-2.2) Med Orders - Current: Current Medications Acetaminophen (Acetaminophen 325 Mg Tab) 650 mg PO Q4H PRN PRN Reason: Pain (Mild 1-3)/fever Benzonatate (Benzonatate 100 Mg Cap) 100 mg PO TID PRN PRN Reason: Cough Last Admin: 10/02/21 01:42 Dose: 100 mg Documented by: Dexamethasone (Dexamethasone 4 Mg/Ml Sdv) 6 mg IVPUSH Q24H [facility] Stop: 10/10/21 09:01 Last Admin: 10/03/21 08:58 Dose: 6 mg Documented by: Enoxaparin Sodium (Enoxaparin 40 Mg/0.4 Ml Syringe) 40 mg SUBCUT Q24H [facility] Last Admin: 10/02/21 15:00 Dose: 40 mg Documented by: Guaifenesin/Dextromethorphan (Guaifenesin/Dextromethorphan 100-10 Mg/5 Ml Soln 10 Ml Cup) 10 ml PO Q4H PRN PRN Reason: Cough Last Admin: 10/03/21 00:52 Dose: 10 ml Documented by: Remdesivir 100 mg/ Sodium (Chloride) 100 mls @ 100 mls/hr IV Q24H [facility] Stop: 10/05/21 11:59 Last Admin: 10/03/21 10:47 Dose: 100 mls/hr Documented by: Lorazepam (Lorazepam 2 Mg/Ml Sdv) 0.5 mg IVPUSH Q4H PRN PRN Reason: Nausea/Vomiting Lorazepam (Lorazepam 0.5 Mg Tab) 0.5 mg PO BEDTIME PRN PRN Reason: Insomnia Magnesium Hydroxide (Magnesium Hydroxide 400 Mg/5 Ml Susp 30 Ml Cup) 30 ml PO Q12H PRN PRN Reason: Constipation Melatonin (Melatonin 3 Mg Tab) 9 mg PO BEDTIME PRN PRN Reason: Sleep Last Admin: 10/02/21 21:03 Dose: 9 mg Documented by: Ondansetron HCl (Ondansetron 4 Mg/2 Ml Sdv) 4 mg IV Q6H PRN PRN Reason: Nausea/Vomiting Ondansetron HCl (Ondansetron 4 Mg Tab.Dis) 4 mg PO Q6H PRN PRN Reason: Nausea able to take PO Senna/Docusate Sodium (Docusate Sodium/Sennosides 50-8.6 Mg Tab) 1 tab PO BID PRN PRN Reason: Constipation Sodium Chloride (Sodium Chloride 0.9% 10 Ml Syringe) 10 ml FLUSH ASDIRECTED PRN PRN Reason: Keep Vein Open Last Admin: 10/01/21 14:57 Dose: 10 ml Documented by: Sodium Chloride (Sodium Chloride 0.65% Nasal [place] 45 Ml Bottle) 0 ml VIRIDIANA Q2H PRN PRN Reason: Nasal Dryness Last Admin: 10/03/21 14:47 Dose: 1 spray Documented by: Discontinued Medications Dexamethasone (Dexamethasone 4 Mg/Ml Sdv) 6 mg IVPUSH ONETIME ONE Stop: 10/01/21 07:42 Last Admin: 10/01/21 07:56 Dose: 6 mg Documented by: Remdesivir 200 mg/ Sodium (Chloride) 250 mls @ 250 mls/hr IV ONETIME ONE Stop: 10/01/21 11:59 Last Admin: 10/01/21 11:26 Dose: 250 mls/hr Documented by: Sodium Chloride (Normal Saline) 100 mls @ 3 mls/sec IV ASDIRECTED [facility] Stop: 10/01/21 13:31 Last Admin: 10/01/21 14:57 Dose: 4 mls/sec Documented by: Iopamidol (Iopamidol 755 Mg/Ml 100 Ml Bottle) 100 ml IV . DIRECTED [facility] Stop: 10/01/21 13:31 Last Admin: 10/01/21 14:57 Dose: 100 ml Documented by: Lidocaine/Epinephrine (Lidocaine 1% With Epinephrine 1:100,000 50 Ml Mdv) 10 ml SUBCUT NOW STA Stop: 10/01/21 09:36 Last Admin: 10/02/21 07:22 Dose: Not Given Documented by: Sodium Chloride (Sodium Chloride 0.9% 10 Ml Sdv) 10 ml FLUSH ONETIME ONE Stop: 10/01/21 13:20 Last Admin: 10/02/21 21:03 Dose: Not Given Documented by: - Exam Quality Assessment: Supplemental Oxygen General: Alert, Oriented, Cooperative, No Acute Distress Lungs: Normal Respiratory Effort. No: Wheezing GI/Abdominal Exam: Soft, No Distention Extremities: No Pedal Edema Psy/Mental Status: Alert, Normal Affect - Patient Data Lab Results Last 24 hrs: Laboratory Results - last 24 hr 10/03/21 10/03/21 Range/Units 04:30 04:30 D-Dimer, Quantitative 1472.58 H (0.0-500.0) ng/mL Sodium 137 L (140-148) mmol/L Potassium 4.1 (3.6-5.2) mmol/L Chloride 100 (100-108) mmol/L Carbon Dioxide 28 (21-32) mmol/L Anion Gap 13.1 (5.0-14.0) mmol/L BUN 16 (7-18) mg/dL Creatinine 0.7 (0.6-1.0) mg/dL Est Cr Clr Drug Dosing 80.44 mL/min Estimated GFR (MDRD) > 60 (>60) Glucose 110 H (74-106) mg/dL Calcium 8.0 L (8.5-10.1) mg/dL Total Bilirubin 0.4 (0.2-1.0) mg/dL AST 60 H (15-37) U/L ALT 77 (12-78) U/L Alkaline Phosphatase 183 H (46-116) U/L C-Reactive Protein 3.41 H (0.0-0.3) mg/dL Total Protein 6.6 (6.4-8.2) g/dL Albumin 2.4 L (3.4-5.0) g/dL Globulin 4.2 H (2.3-3.5) g/dL Albumin/Globulin Ratio 0.6 L (1.2-2.2) Result Diagrams: 10/02/21 04:52 10/03/21 04:30 Sepsis Event Note - Evaluation Sepsis Screening Result: No Definite Risk - Focused Exam Vital Signs: Vital Signs Temp Pulse Resp BP Pulse Ox 10/03/21 14:39 36.7 C 63 18 143/77 H 93 L 10/03/21 13:00 93 L 10/03/21 11:14 36.6 C 55 L 18 141/66 H 98 10/03/21 07:49 36.3 C 49 L 16 147/75 H 95 10/03/21 04:00 51 L 16 94 L - Problem List & Annotations (1) Pneumonia due to COVID-19 virus SNOMED Code(s): 853163719853756000 Code(s): U07.1 - COVID-19; J12.82 - PNEUMONIA DUE TO CORONAVIRUS DISEASE 2019 Status: Acute Current Visit: Yes (2) Acute respiratory failure due to COVID-19 SNOMED Code(s): 861836732 Code(s): U07.1 - COVID-19; J96.00 - ACUTE RESPIRATORY FAILURE, UNSP W HYPOXIA OR HYPERCAPNIA Status: Acute Current Visit: Yes (3) Obesity, Class III, BMI 40-49.9 (morbid obesity) SNOMED Code(s): 766978686, 789851040, 11418199856036 Code(s): E66.01 - MORBID (SEVERE) OBESITY DUE TO EXCESS CALORIES Status: Chronic Current Visit: Yes - Problem List Review Problem List Initiated/Reviewed/Updated: Yes - My Orders Last 24 Hours: My Active Orders 10/03/21 14:06 Sodium Chloride 0.65% [[place] Nasal [place]] 0 ml VIRIDIANA Q2H PRN 10/04/21 05:00 CBC W/O DIFF,HEMOGRAM [HEME] Timed (1) COMPREHENSIVE METABOLIC PN,CMP [CHEM] Timed - Plan Plan:: ASSESSMENT AND PLAN - COVID-19 pneumonia-complicated by acute respiratory failure with hypoxia. Symptom onset 09/19. She did receive J and J vaccine but very close to symptom onset. Clinically improving. Down to 4 L of oxygen today. Tolerating medication so far. -Dexamethasone 6 mg daily x10 (day 3) -Remdesivir x5 days -Consider baricitinib if she declines further -Enoxaparin every 24 hours -Prone as able -Supplemental oxygen, wean as able -Symptomatic management of cough -Isolation precautions Morbid obesity BMI of 45- Maintenance issues - -DVT prophylaxis-enoxaparin -GI prophylaxis-not indicated -Nutrition-regular CODE STATUS -full code Disposition -I anticipate discharge home after the hospital stay Usman Estes M.D.
[2021-10-03] MEDS: Enoxaparin 40 MG/0.4 ML Syringe SUBCUT SCH (16:06)
[2021-10-03] MEDS: Benzonatate 100 MG Cap PO PRN (19:36)
[2021-10-03] MEDS: Melatonin 3 MG Tab PO PRN (23:17)
[2021-10-04] MEDS: Dexamethasone 4 MG/ML SDV IVPUSH SCH (09:02)
[2021-10-04] MEDS: guaiFENesin/Dextromethorphan 100-10 MG/5 ML Soln 10 ML Cup PO PRN ×2 (09:45→19:51)
[2021-10-04] MEDS: REMDESIVIR 100 MG in Sodium Chloride 0.9% 100 ML IV SCH (10:54)
--- NOTE | 2021-10-04 13:21 | PCM.PN ---
- General Info Date of Service: 10/04/21 Subjective Update: There were no acute events overnight. She is down to 3 L of oxygen. Feels a little better again today. Had a shower today but was fairly exhausted after the shower. Cough seems a little bit better. Energy is a little bit better. No fevers. Appetite has been okay. Tolerating treatment so far. Functional Status: Reports: Pain Controlled, Tolerating Diet - Review of Systems General: Reports: Weakness - Patient Data Vitals - Most Recent: Last Vital Signs Temp 36.2 C 10/04/21 10:40 Pulse 56 L 10/04/21 10:40 Resp 18 10/04/21 10:40 BP 130/66 10/04/21 10:40 Pulse Ox 93 L 10/04/21 13:00 Weight - Most Recent: 127 kg I&O - Last 24 Hours: Intake & Output 10/03/21 10/04/21 10/04/21 22:59 06:59 14:59 Intake Total 240 1500 Balance 240 1500 Lab Results Last 24 Hours: Laboratory Results - last 24 hr 10/04/21 10/04/21 Range/Units 04:50 04:50 WBC 15.7 H (4.5-11.0) K/uL RBC 4.59 (3.30-5.50) M/uL Hgb 13.0 (12.0-15.0) g/dL Hct 40.5 (36.0-48.0) % MCV 88 (80-98) fL MCH 28 (27-31) pg MCHC 32 (32-36) % Plt Count 487 H (150-400) K/uL Sodium 139 L (140-148) mmol/L Potassium 4.1 (3.6-5.2) mmol/L Chloride 101 (100-108) mmol/L Carbon Dioxide 29 (21-32) mmol/L Anion Gap 13.1 (5.0-14.0) mmol/L BUN 13 (7-18) mg/dL Creatinine 0.7 (0.6-1.0) mg/dL Est Cr Clr Drug Dosing 80.44 mL/min Estimated GFR (MDRD) > 60 (>60) Glucose 98 (74-106) mg/dL Calcium 8.2 L (8.5-10.1) mg/dL Total Bilirubin 0.4 (0.2-1.0) mg/dL AST 33 (15-37) U/L ALT 65 (12-78) U/L Alkaline Phosphatase 167 H (46-116) U/L Total Protein 6.6 (6.4-8.2) g/dL Albumin 2.5 L (3.4-5.0) g/dL Globulin 4.1 H (2.3-3.5) g/dL Albumin/Globulin Ratio 0.6 L (1.2-2.2) Med Orders - Current: Current Medications Acetaminophen (Acetaminophen 325 Mg Tab) 650 mg PO Q4H PRN PRN Reason: Pain (Mild 1-3)/fever Benzonatate (Benzonatate 100 Mg Cap) 100 mg PO TID PRN PRN Reason: Cough Last Admin: 10/03/21 19:36 Dose: 100 mg Documented by: Dexamethasone (Dexamethasone 4 Mg/Ml Sdv) 6 mg IVPUSH Q24H [facility] Stop: 10/10/21 09:01 Last Admin: 10/04/21 09:02 Dose: 6 mg Documented by: Enoxaparin Sodium (Enoxaparin 40 Mg/0.4 Ml Syringe) 40 mg SUBCUT Q24H [facility] Last Admin: 10/03/21 16:06 Dose: 40 mg Documented by: Guaifenesin/Dextromethorphan (Guaifenesin/Dextromethorphan 100-10 Mg/5 Ml Soln 10 Ml Cup) 10 ml PO Q4H PRN PRN Reason: Cough Last Admin: 10/04/21 09:45 Dose: 10 ml Documented by: Remdesivir 100 mg/ Sodium (Chloride) 100 mls @ 100 mls/hr IV Q24H [facility] Stop: 10/05/21 11:59 Last Admin: 10/04/21 10:54 Dose: 100 mls/hr Documented by: Lorazepam (Lorazepam 2 Mg/Ml Sdv) 0.5 mg IVPUSH Q4H PRN PRN Reason: Nausea/Vomiting Lorazepam (Lorazepam 0.5 Mg Tab) 0.5 mg PO BEDTIME PRN PRN Reason: Insomnia Magnesium Hydroxide (Magnesium Hydroxide 400 Mg/5 Ml Susp 30 Ml Cup) 30 ml PO Q12H PRN PRN Reason: Constipation Melatonin (Melatonin 3 Mg Tab) 9 mg PO BEDTIME PRN PRN Reason: Sleep Last Admin: 10/03/21 23:17 Dose: 9 mg Documented by: Ondansetron HCl (Ondansetron 4 Mg/2 Ml Sdv) 4 mg IV Q6H PRN PRN Reason: Nausea/Vomiting Ondansetron HCl (Ondansetron 4 Mg Tab.Dis) 4 mg PO Q6H PRN PRN Reason: Nausea able to take PO Senna/Docusate Sodium (Docusate Sodium/Sennosides 50-8.6 Mg Tab) 1 tab PO BID PRN PRN Reason: Constipation Sodium Chloride (Sodium Chloride 0.9% 10 Ml Syringe) 10 ml FLUSH ASDIRECTED PRN PRN Reason: Keep Vein Open Last Admin: 10/01/21 14:57 Dose: 10 ml Documented by: Sodium Chloride (Sodium Chloride 0.65% Nasal [place] 45 Ml Bottle) 0 ml VIRIDIANA Q2H PRN PRN Reason: Nasal Dryness Last Admin: 10/03/21 14:47 Dose: 1 spray Documented by: Discontinued Medications Dexamethasone (Dexamethasone 4 Mg/Ml Sdv) 6 mg IVPUSH ONETIME ONE Stop: 10/01/21 07:42 Last Admin: 10/01/21 07:56 Dose: 6 mg Documented by: Remdesivir 200 mg/ Sodium (Chloride) 250 mls @ 250 mls/hr IV ONETIME ONE Stop: 10/01/21 11:59 Last Admin: 10/01/21 11:26 Dose: 250 mls/hr Documented by: Sodium Chloride (Normal Saline) 100 mls @ 3 mls/sec IV ASDIRECTED [facility] Stop: 10/01/21 13:31 Last Admin: 10/01/21 14:57 Dose: 4 mls/sec Documented by: Iopamidol (Iopamidol 755 Mg/Ml 100 Ml Bottle) 100 ml IV . DIRECTED [facility] Stop: 10/01/21 13:31 Last Admin: 10/01/21 14:57 Dose: 100 ml Documented by: Lidocaine/Epinephrine (Lidocaine 1% With Epinephrine 1:100,000 50 Ml Mdv) 10 ml SUBCUT NOW STA Stop: 10/01/21 09:36 Last Admin: 10/02/21 07:22 Dose: Not Given Documented by: Sodium Chloride (Sodium Chloride 0.9% 10 Ml Sdv) 10 ml FLUSH ONETIME ONE Stop: 10/01/21 13:20 Last Admin: 10/02/21 21:03 Dose: Not Given Documented by: - Exam Quality Assessment: Supplemental Oxygen General: Alert, Oriented, Cooperative, No Acute Distress Lungs: Normal Respiratory Effort. No: Wheezing GI/Abdominal Exam: Soft, No Distention Extremities: No Pedal Edema Psy/Mental Status: Alert, Normal Affect - Patient Data Lab Results Last 24 hrs: Laboratory Results - last 24 hr 10/04/21 10/04/21 Range/Units 04:50 04:50 WBC 15.7 H (4.5-11.0) K/uL RBC 4.59 (3.30-5.50) M/uL Hgb 13.0 (12.0-15.0) g/dL Hct 40.5 (36.0-48.0) % MCV 88 (80-98) fL MCH 28 (27-31) pg MCHC 32 (32-36) % Plt Count 487 H (150-400) K/uL Sodium 139 L (140-148) mmol/L Potassium 4.1 (3.6-5.2) mmol/L Chloride 101 (100-108) mmol/L Carbon Dioxide 29 (21-32) mmol/L Anion Gap 13.1 (5.0-14.0) mmol/L BUN 13 (7-18) mg/dL Creatinine 0.7 (0.6-1.0) mg/dL Est Cr Clr Drug Dosing 80.44 mL/min Estimated GFR (MDRD) > 60 (>60) Glucose 98 (74-106) mg/dL Calcium 8.2 L (8.5-10.1) mg/dL Total Bilirubin 0.4 (0.2-1.0) mg/dL AST 33 (15-37) U/L ALT 65 (12-78) U/L Alkaline Phosphatase 167 H (46-116) U/L Total Protein 6.6 (6.4-8.2) g/dL Albumin 2.5 L (3.4-5.0) g/dL Globulin 4.1 H (2.3-3.5) g/dL Albumin/Globulin Ratio 0.6 L (1.2-2.2) Result Diagrams: 10/04/21 04:50 10/04/21 04:50 Sepsis Event Note - Evaluation Sepsis Screening Result: No Definite Risk - Focused Exam Vital Signs: Vital Signs Temp Pulse Resp BP Pulse Ox Pulse Ox 10/04/21 13:00 93 L 10/04/21 10:40 36.2 C 56 L 18 130/66 94 L 10/04/21 07:25 36.2 C 57 L 18 136/70 94 L 10/04/21 07:00 98 - Problem List & Annotations (1) Pneumonia due to COVID-19 virus SNOMED Code(s): 936677057083430271 Code(s): U07.1 - COVID-19; J12.82 - PNEUMONIA DUE TO CORONAVIRUS DISEASE 2019 Status: Acute Current Visit: Yes (2) Acute respiratory failure due to COVID-19 SNOMED Code(s): 565578555 Code(s): U07.1 - COVID-19; J96.00 - ACUTE RESPIRATORY FAILURE, UNSP W HYPOXIA OR HYPERCAPNIA Status: Acute Current Visit: Yes (3) Obesity, Class III, BMI 40-49.9 (morbid obesity) SNOMED Code(s): 487272018, 613359053, 13945979059019 Code(s): E66.01 - MORBID (SEVERE) OBESITY DUE TO EXCESS CALORIES Status: Chronic Current Visit: Yes - Problem List Review Problem List Initiated/Reviewed/Updated: Yes - My Orders Last 24 Hours: My Active Orders 10/03/21 14:06 Sodium Chloride 0.65% [[place] Nasal [place]] 0 ml VIRIDIANA Q2H PRN 10/05/21 05:00 CBC W/O DIFF,HEMOGRAM [HEME] Timed (1) COMPREHENSIVE METABOLIC PN,CMP [CHEM] Timed CRP [C-REACTIVE PROTEIN] [CHEM] Timed D-DIMER QUANTITATIVE [COAG] Timed - Plan Plan:: ASSESSMENT AND PLAN - COVID-19 pneumonia-complicated by acute respiratory failure with hypoxia. Symptom onset 09/19. She did receive J and J vaccine but very close to symptom onset. Clinically improving. Down to 3 L of oxygen today. Tolerating medication so far. -Dexamethasone 6 mg daily x10 (day 4) -Remdesivir x5 days -Consider baricitinib if she declines further -Enoxaparin every 24 hours -Prone as able -Supplemental oxygen, wean as able -Symptomatic management of cough -Isolation precautions through 10/05 (15 days) Morbid obesity BMI of 45- Maintenance issues - -DVT prophylaxis-enoxaparin -GI prophylaxis-not indicated -Nutrition-regular CODE STATUS -full code Disposition -I anticipate discharge home after the hospital stay Usman Estes M.D.
[2021-10-04] MEDS: Enoxaparin 40 MG/0.4 ML Syringe SUBCUT SCH (16:02)
[2021-10-05] MEDS: Dexamethasone 4 MG/ML SDV IVPUSH SCH (09:19)
[2021-10-05] MEDS: REMDESIVIR 100 MG in Sodium Chloride 0.9% 100 ML IV SCH (10:50)
--- NOTE | 2021-10-05 14:07 | PCM.PN ---
- General Info Date of Service: 10/05/21 Subjective Update: Ms. Benites has been stable since yesterday. She is now off of supplemental oxygen, with good saturations at rest. She does desaturate with activity, but refuses further oxygen therapy because of her dry nose and throat. Functional Status: Reports: Tolerating Diet, Ambulating, Urinating - Review of Systems General: Reports: Weakness, Fatigue. Denies: Fever, Chills Pulmonary: Reports: Shortness of Breath, Cough. Denies: Pleuritic Chest Pain, Sputum, Hemoptysis, Wheezing Cardiovascular: Reports: Dyspnea on Exertion. Denies: Chest Pain, Palpitations, Orthopnea, PND, Edema, Lightheadedness Gastrointestinal: Reports: No Symptoms Genitourinary: Reports: No Symptoms - Patient Data Vitals - Most Recent: Last Vital Signs Temp 98.2 F 10/05/21 10:45 Pulse 61 10/05/21 10:45 Resp 18 10/05/21 10:45 BP 128/68 10/05/21 10:45 Pulse Ox 93 L 10/05/21 10:45 Weight - Most Recent: 279 lb 15.793 oz I&O - Last 24 Hours: Intake & Output 10/04/21 10/05/21 10/05/21 22:59 06:59 14:59 Intake Total 1240 960 Balance 1240 960 Lab Results Last 24 Hours: Laboratory Results - last 24 hr 10/05/21 10/05/21 10/05/21 Range/Units 04:50 04:50 04:50 WBC 16.5 H (4.5-11.0) K/uL RBC 4.99 (3.30-5.50) M/uL Hgb 14.5 (12.0-15.0) g/dL Hct 43.5 (36.0-48.0) % MCV 87 (80-98) fL MCH 29 (27-31) pg MCHC 33 (32-36) % Plt Count 558 H (150-400) K/uL D-Dimer, Quantitative 1171.36 H (0.0-500.0) ng/mL Sodium 137 L (140-148) mmol/L Potassium 4.3 (3.6-5.2) mmol/L Chloride 99 L (100-108) mmol/L Carbon Dioxide 28 (21-32) mmol/L Anion Gap 14.3 H (5.0-14.0) mmol/L BUN 13 (7-18) mg/dL Creatinine 0.7 (0.6-1.0) mg/dL Est Cr Clr Drug Dosing 80.44 mL/min Estimated GFR (MDRD) > 60 (>60) Glucose 94 (74-106) mg/dL Calcium 8.5 (8.5-10.1) mg/dL Total Bilirubin 0.4 (0.2-1.0) mg/dL AST 25 (15-37) U/L ALT 61 (12-78) U/L Alkaline Phosphatase 164 H (46-116) U/L C-Reactive Protein 1.48 H (0.0-0.3) mg/dL Total Protein 7.0 (6.4-8.2) g/dL Albumin 2.7 L (3.4-5.0) g/dL Globulin 4.3 H (2.3-3.5) g/dL Albumin/Globulin Ratio 0.6 L (1.2-2.2) Med Orders - Current: Current Medications Acetaminophen (Acetaminophen 325 Mg Tab) 650 mg PO Q4H PRN PRN Reason: Pain (Mild 1-3)/fever Benzonatate (Benzonatate 100 Mg Cap) 100 mg PO TID PRN PRN Reason: Cough Last Admin: 10/03/21 19:36 Dose: 100 mg Documented by: Dexamethasone (Dexamethasone 4 Mg/Ml Sdv) 6 mg IVPUSH Q24H [facility] Stop: 10/10/21 09:01 Last Admin: 10/05/21 09:19 Dose: 6 mg Documented by: Enoxaparin Sodium (Enoxaparin 40 Mg/0.4 Ml Syringe) 40 mg SUBCUT Q24H [facility] Last Admin: 10/04/21 16:02 Dose: 40 mg Documented by: Guaifenesin/Dextromethorphan (Guaifenesin/Dextromethorphan 100-10 Mg/5 Ml Soln 10 Ml Cup) 10 ml PO Q4H PRN PRN Reason: Cough Last Admin: 10/04/21 19:51 Dose: 10 ml Documented by: Lorazepam (Lorazepam 2 Mg/Ml Sdv) 0.5 mg IVPUSH Q4H PRN PRN Reason: Nausea/Vomiting Lorazepam (Lorazepam 0.5 Mg Tab) 0.5 mg PO BEDTIME PRN PRN Reason: Insomnia Magnesium Hydroxide (Magnesium Hydroxide 400 Mg/5 Ml Susp 30 Ml Cup) 30 ml PO Q12H PRN PRN Reason: Constipation Melatonin (Melatonin 3 Mg Tab) 9 mg PO BEDTIME PRN PRN Reason: Sleep Last Admin: 10/03/21 23:17 Dose: 9 mg Documented by: Ondansetron HCl (Ondansetron 4 Mg/2 Ml Sdv) 4 mg IV Q6H PRN PRN Reason: Nausea/Vomiting Ondansetron HCl (Ondansetron 4 Mg Tab.Dis) 4 mg PO Q6H PRN PRN Reason: Nausea able to take PO Senna/Docusate Sodium (Docusate Sodium/Sennosides 50-8.6 Mg Tab) 1 tab PO BID PRN PRN Reason: Constipation Sodium Chloride (Sodium Chloride 0.9% 10 Ml Syringe) 10 ml FLUSH ASDIRECTED PRN PRN Reason: Keep Vein Open Last Admin: 10/01/21 14:57 Dose: 10 ml Documented by: Sodium Chloride (Sodium Chloride 0.65% Nasal [place] 45 Ml Bottle) 0 ml VIRIDIANA Q2H PRN PRN Reason: Nasal Dryness Last Admin: 10/03/21 14:47 Dose: 1 spray Documented by: Discontinued Medications Dexamethasone (Dexamethasone 4 Mg/Ml Sdv) 6 mg IVPUSH ONETIME ONE Stop: 10/01/21 07:42 Last Admin: 10/01/21 07:56 Dose: 6 mg Documented by: Remdesivir 200 mg/ Sodium (Chloride) 250 mls @ 250 mls/hr IV ONETIME ONE Stop: 10/01/21 11:59 Last Admin: 10/01/21 11:26 Dose: 250 mls/hr Documented by: Sodium Chloride (Normal Saline) 100 mls @ 3 mls/sec IV ASDIRECTED [facility] Stop: 10/01/21 13:31 Last Admin: 10/01/21 14:57 Dose: 4 mls/sec Documented by: Remdesivir 100 mg/ Sodium (Chloride) 100 mls @ 100 mls/hr IV Q24H [facility] Stop: 10/05/21 11:59 Last Admin: 10/05/21 10:50 Dose: 100 mls/hr Documented by: Iopamidol (Iopamidol 755 Mg/Ml 100 Ml Bottle) 100 ml IV . DIRECTED [facility] Stop: 10/01/21 13:31 Last Admin: 10/01/21 14:57 Dose: 100 ml Documented by: Lidocaine/Epinephrine (Lidocaine 1% With Epinephrine 1:100,000 50 Ml Mdv) 10 ml SUBCUT NOW STA Stop: 10/01/21 09:36 Last Admin: 10/02/21 07:22 Dose: Not Given Documented by: Sodium Chloride (Sodium Chloride 0.9% 10 Ml Sdv) 10 ml FLUSH ONETIME ONE Stop: 10/01/21 13:20 Last Admin: 10/02/21 21:03 Dose: Not Given Documented by: - Exam Quality Assessment: DVT Prophylaxis. No: Supplemental Oxygen General: Alert, Oriented, Cooperative, Mild Distress Lungs: Clear to Auscultation, Normal Respiratory Effort Cardiovascular: Regular Rate, Regular Rhythm, No Murmurs GI/Abdominal Exam: Soft, Non-Tender, No Organomegaly, No Distention Extremities: Non-Tender, No Pedal Edema - Patient Data Lab Results Last 24 hrs: Laboratory Results - last 24 hr 10/05/21 10/05/21 10/05/21 Range/Units 04:50 04:50 04:50 WBC 16.5 H (4.5-11.0) K/uL RBC 4.99 (3.30-5.50) M/uL Hgb 14.5 (12.0-15.0) g/dL Hct 43.5 (36.0-48.0) % MCV 87 (80-98) fL MCH 29 (27-31) pg MCHC 33 (32-36) % Plt Count 558 H (150-400) K/uL D-Dimer, Quantitative 1171.36 H (0.0-500.0) ng/mL Sodium 137 L (140-148) mmol/L Potassium 4.3 (3.6-5.2) mmol/L Chloride 99 L (100-108) mmol/L Carbon Dioxide 28 (21-32) mmol/L Anion Gap 14.3 H (5.0-14.0) mmol/L BUN 13 (7-18) mg/dL Creatinine 0.7 (0.6-1.0) mg/dL Est Cr Clr Drug Dosing 80.44 mL/min Estimated GFR (MDRD) > 60 (>60) Glucose 94 (74-106) mg/dL Calcium 8.5 (8.5-10.1) mg/dL Total Bilirubin 0.4 (0.2-1.0) mg/dL AST 25 (15-37) U/L ALT 61 (12-78) U/L Alkaline Phosphatase 164 H (46-116) U/L C-Reactive Protein 1.48 H (0.0-0.3) mg/dL Total Protein 7.0 (6.4-8.2) g/dL Albumin 2.7 L (3.4-5.0) g/dL Globulin 4.3 H (2.3-3.5) g/dL Albumin/Globulin Ratio 0.6 L (1.2-2.2) Result Diagrams: 10/05/21 04:50 10/05/21 04:50 Sepsis Event Note - Evaluation Sepsis Screening Result: No Definite Risk - Focused Exam Vital Signs: Vital Signs Temp Pulse Resp BP Pulse Ox 10/05/21 10:45 98.2 F 61 18 128/68 93 L 10/05/21 08:28 91 L 10/05/21 07:28 97.6 F 53 L 16 155/76 H 91 L 10/05/21 02:44 50 L 16 93 L - Problem List Review Problem List Initiated/Reviewed/Updated: Yes - My Orders Last 24 Hours: My Active Orders 10/06/21 05:00 CBC WITH AUTO DIFF [HEME] Timed - Plan Plan:: ASSESSMENT AND PLAN COVID-19 pneumonia-complicated by acute respiratory failure with hypoxia. Symptom onset 09/19. She did receive J and J vaccine but very close to symptom onset. Now off of supplemental oxygen, but does desaturate with activity -Dexamethasone 6 mg daily x10 (day 5) -Remdesivir x5 days -Consider baricitinib if she declines further -Enoxaparin every 24 hours -Prone as able -Supplemental oxygen, wean as able -Symptomatic management of cough -Isolation precautions through 10/05 (15 days) Morbid obesity BMI of 45- Maintenance issues - -DVT prophylaxis-enoxaparin -GI prophylaxis-not indicated -Nutrition-regular CODE STATUS -full code Disposition -I anticipate discharge home tomorrow
[2021-10-05] MEDS: Enoxaparin 40 MG/0.4 ML Syringe SUBCUT SCH (16:00)
[2021-10-05] MEDS: Melatonin 3 MG Tab PO PRN (20:46)
[2021-10-06] MEDS: Dexamethasone 4 MG/ML SDV IVPUSH SCH (09:29)
--- NOTE | 2021-10-06 12:00 | PCM.DCSUM1 ---
Discharge Summary - Hospital Course Brief History: Ms. Benites is a 61-year-old woman who was admitted through the emergency department with shortness of breath, weakness, hypoxia, secondary to COVID-19 infection with pneumonia. - Discharge Data Discharge Date: 10/06/21 Discharge Disposition: Home, Self-Care 01 Condition: Fair - Referral to Home Health Primary Care Physician: PCP None - Discharge Diagnosis/Problem(s) (1) COVID-19 SNOMED Code(s): 981571196 ICD Code: U07.1 - COVID-19 Status: Acute Current Visit: No (2) Pneumonia due to COVID-19 virus SNOMED Code(s): 858862352534291779 ICD Code: U07.1 - COVID-19; J12.82 - PNEUMONIA DUE TO CORONAVIRUS DISEASE 2019 Status: Acute Current Visit: Yes (3) Hypoxia SNOMED Code(s): 862487444 ICD Code: R09.02 - HYPOXEMIA Status: Acute Current Visit: Yes (4) Acute respiratory failure due to COVID-19 SNOMED Code(s): 566748207 ICD Code: U07.1 - COVID-19; J96.00 - ACUTE RESPIRATORY FAILURE, UNSP W HYPOXIA OR HYPERCAPNIA Status: Acute Current Visit: Yes - Patient Summary/Data Hospital Course: Ms. Benites presented to the emergency room with progressive shortness of breath and cough. She first noticed symptoms concerning for Covid on about September 19. She had mild cough and shortness of breath at that time as well as some intermittent fevers, fatigue and weakness. She was seen in the emergency room on September 26 and did receive monoclonal antibodies on September 27. She felt okay the day after getting monoclonal antibodies but over the next couple of days had increasing cough and shortness of breath again. She did receive the [employer] vaccine but it was only a few days prior to onset of her Covid symptoms. Work-up in the emergency room was suggestive of Covid pneumonia with bilateral infiltrates noted on the chest x-ray as well as an elevation of D- dimer and CRP. She was hypoxic. She received dexamethasone and remdesivir in the emergency room and was admitted for further management. After admission she showed gradual improvement with decreasing oxygen requirements. By the day of discharge she had been off of supplemental oxygen for 24 hours. She had good saturations at rest on room air but did desaturate mildly with activity. She was offered discharged home with supplemental oxygen which she has refused. She was also treated with enoxaparin daily throughout her hospital stay. Activity will be as tolerated and she will resume her usual diet. Follow-up appointment will be scheduled with her primary care provider within 1 week. - Patient Instructions Diet: Usual Diet as Tolerated Activity: As Tolerated Other/Special Instructions: Please schedule follow-up appointment with primary care provider within 1 week. - Discharge Plan *PRESCRIPTION DRUG MONITORING PROGRAM REVIEWED*: Not Applicable *COPY OF PRESCRIPTION DRUG MONITORING REPORT IN PATIENT TRINA: Not Applicable Home Medications: Home Meds Acetaminophen [Tylenol Extra Strength] 500 mg PO Q4H PRN #0 10/06/21 [Rx] Ibuprofen 800 mg PO Q4H PRN #0 10/06/21 [Rx] Patient Handouts: Hypoxia, COVID-19 Referrals: Sadaf Murray NP [Ordering Only Provider] - 10/13/21 1:30 pm (Arrive 15 minutes early to register. ) - Discharge Summary/Plan Comment DC Time >30 min.: No Total # of Minutes for Discharge Time: 15 - Patient Data Vitals - Most Recent: Last Vital Signs Temp 97.4 F 10/06/21 10:06 Pulse 69 10/06/21 10:06 Resp 18 10/06/21 10:06 BP 110/77 10/06/21 10:06 Pulse Ox 95 10/06/21 10:06 Weight - Most Recent: 279 lb 15.793 oz I&O - Last 24 hours: Intake & Output 10/05/21 10/06/21 10/06/21 22:59 06:59 14:59 Intake Total 1560 360 Balance 1560 360 Lab Results - Last 24 hrs: Laboratory Results - last 24 hr 10/06/21 Range/Units 05:30 WBC 16.6 H (4.5-11.0) K/uL RBC 5.09 (3.30-5.50) M/uL Hgb 14.9 (12.0-15.0) g/dL Hct 44.4 (36.0-48.0) % MCV 87 (80-98) fL MCH 29 (27-31) pg MCHC 34 (32-36) % Plt Count 602 H (150-400) K/uL Add Manual Diff Yes Neutrophils % (Manual) 63 (36-66) % Band Neutrophils % 6 (5-11) % Lymphocytes % (Manual) 24 (24-44) % Monocytes % (Manual) 7 H (2-6) % Med Orders - Current: Current Medications Acetaminophen (Acetaminophen 325 Mg Tab) 650 mg PO Q4H PRN PRN Reason: Pain (Mild 1-3)/fever Benzonatate (Benzonatate 100 Mg Cap) 100 mg PO TID PRN PRN Reason: Cough Last Admin: 10/03/21 19:36 Dose: 100 mg Documented by: Dexamethasone (Dexamethasone 4 Mg/Ml Sdv) 6 mg IVPUSH Q24H [facility] Stop: 10/10/21 09:01 Last Admin: 10/06/21 09:29 Dose: 6 mg Documented by: Enoxaparin Sodium (Enoxaparin 40 Mg/0.4 Ml Syringe) 40 mg SUBCUT Q24H [facility] Last Admin: 10/05/21 16:00 Dose: 40 mg Documented by: Guaifenesin/Dextromethorphan (Guaifenesin/Dextromethorphan 100-10 Mg/5 Ml Soln 10 Ml Cup) 10 ml PO Q4H PRN PRN Reason: Cough Last Admin: 10/04/21 19:51 Dose: 10 ml Documented by: Lorazepam (Lorazepam 2 Mg/Ml Sdv) 0.5 mg IVPUSH Q4H PRN PRN Reason: Nausea/Vomiting Lorazepam (Lorazepam 0.5 Mg Tab) 0.5 mg PO BEDTIME PRN PRN Reason: Insomnia Magnesium Hydroxide (Magnesium Hydroxide 400 Mg/5 Ml Susp 30 Ml Cup) 30 ml PO Q12H PRN PRN Reason: Constipation Melatonin (Melatonin 3 Mg Tab) 9 mg PO BEDTIME PRN PRN Reason: Sleep Last Admin: 10/05/21 20:46 Dose: 9 mg Documented by: Ondansetron HCl (Ondansetron 4 Mg/2 Ml Sdv) 4 mg IV Q6H PRN PRN Reason: Nausea/Vomiting Ondansetron HCl (Ondansetron 4 Mg Tab.Dis) 4 mg PO Q6H PRN PRN Reason: Nausea able to take PO Senna/Docusate Sodium (Docusate Sodium/Sennosides 50-8.6 Mg Tab) 1 tab PO BID PRN PRN Reason: Constipation Sodium Chloride (Sodium Chloride 0.9% 10 Ml Syringe) 10 ml FLUSH ASDIRECTED PRN PRN Reason: Keep Vein Open Last Admin: 10/01/21 14:57 Dose: 10 ml Documented by: Sodium Chloride (Sodium Chloride 0.65% Nasal [place] 45 Ml Bottle) 0 ml VIRIDIANA Q2H PRN PRN Reason: Nasal Dryness Last Admin: 10/03/21 14:47 Dose: 1 spray Documented by: Discontinued Medications Dexamethasone (Dexamethasone 4 Mg/Ml Sdv) 6 mg IVPUSH ONETIME ONE Stop: 10/01/21 07:42 Last Admin: 10/01/21 07:56 Dose: 6 mg Documented by: Remdesivir 200 mg/ Sodium (Chloride) 250 mls @ 250 mls/hr IV ONETIME ONE Stop: 10/01/21 11:59 Last Admin: 10/01/21 11:26 Dose: 250 mls/hr Documented by: Sodium Chloride (Normal Saline) 100 mls @ 3 mls/sec IV ASDIRECTED [facility] Stop: 10/01/21 13:31 Last Admin: 10/01/21 14:57 Dose: 4 mls/sec Documented by: Remdesivir 100 mg/ Sodium (Chloride) 100 mls @ 100 mls/hr IV Q24H [facility] Stop: 10/05/21 11:59 Last Admin: 10/05/21 10:50 Dose: 100 mls/hr Documented by: Iopamidol (Iopamidol 755 Mg/Ml 100 Ml Bottle) 100 ml IV . DIRECTED [facility] Stop: 10/01/21 13:31 Last Admin: 10/01/21 14:57 Dose: 100 ml Documented by: Lidocaine/Epinephrine (Lidocaine 1% With Epinephrine 1:100,000 50 Ml Mdv) 10 ml SUBCUT NOW STA Stop: 10/01/21 09:36 Last Admin: 10/02/21 07:22 Dose: Not Given Documented by: Sodium Chloride (Sodium Chloride 0.9% 10 Ml Sdv) 10 ml FLUSH ONETIME ONE Stop: 10/01/21 13:20 Last Admin: 10/02/21 21:03 Dose: Not Given Documented by: - Exam General: Reports: Alert, Oriented, Cooperative, No Acute Distress Lungs: Reports: Clear to Auscultation, Normal Respiratory Effort Cardiovascular: Reports: Regular Rate, Regular Rhythm, No Murmurs GI/Abdominal Exam: Soft, Non-Tender, No Organomegaly, No Distention Extremities: Non-Tender, No Pedal Edema
== END 2021-10-06 13:24 | disposition home or self-care (01) | DRG 177 ==
LOC: JP.ED 07:15 → JP.2SS 12:40
PROVIDERS: ADMIT Internal Medicine; ATTEND Hospitalist
PROC: XW033E5 Introduction of Remdesivir Anti-infective into Peripheral Vein, Percutaneous Approach, New Technology Group 5 (ICD-10-PCS; principal; 2021-10-01)
PROC: 3E0333Z Introduction of Anti-inflammatory into Peripheral Vein, Percutaneous Approach (ICD-10-PCS; 2021-10-01)
PROC: 8E0ZXY6 Isolation (ICD-10-PCS; 2021-10-01)
DX: U07.1 COVID-19 (principal); J12.82 Pneumonia due to coronavirus disease 2019; J96.01 Acute respiratory failure with hypoxia; Z68.42 Body mass index [BMI] 45.0-49.9, adult; Z86.19 Personal history of other infectious and parasitic diseases; Z90.89 Acquired absence of other organs; E66.01 Morbid (severe) obesity due to excess calories
CPT/HCPCS: 36415; 71045; 71045-26; 71275; 71275-26; 80048; 80053; 80076; 81001; 84145; 84484; 85025; 85027; 85379; 86140; 96365; 96375; 99285-25; A9270-GY; J1100; J1650; J7050; Q9967